=== PATIENT | male | born 1985 | race African-American/Black ===

== ENCOUNTER 2016-11-14 17:33 | Emergency (ER) | payer MEDICAID ==
[~2016-11-14] VITALS: Ht 167.6 cm; Wt 72.6 kg
[2016-11-14 17:47] VITALS: BP 132/71
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
--- NOTE | 2016-11-14 17:57 | NUR ---
DR BENTON AT BEDSIDE
[2016-11-14] MEDS ORDERED: cefTRIAXone 250 MG in LIDOCAINE 1% ED 0.9 ML IM ONE (18:00)
--- NOTE | 2016-11-14 19:03 | NUR ---
Patient discharged with v/s stable. Written and verbal after care instructions given and explained. Patient alert, oriented and verbalized understanding of instructions. Ambulatory with steady gait. All questions addressed prior to discharge. ID band removed. Patient advised to follow up with PMD. Rx of CEPHALEXIN AND DOXYCYCLINE given. Patient educated on indication of medication including possible reaction and side effects. Opportunity to ask questions provided and answered.
[2016-11-14 19:04] VITALS: BP 138/76
== END 2016-11-14 19:03 | disposition home or self-care (01) ==
LOC: MED 17:33
DX: A64 Unspecified sexually transmitted disease (principal); N39.0 Urinary tract infection, site not specified
CPT/HCPCS: 36415; 81001; 87086; 87491; 96372; 99284; J0696; J2001